=== PATIENT | female | born 2000 | race African-American/Black ===

== ENCOUNTER 2022-05-18 03:39 | Inpatient (IN) | payer OTHER ==
[~2022-05-18] VITALS: Ht 160 cm; Wt 80.3 kg
[2022-05-18] VITALS (34 sets, daily range): BP systolic 118–191; BP diastolic 55–108
[2022-05-18] MEDS ORDERED: HOME MED LIST COMPLETE! XX SCH ×2 (04:05→08:15)
[2022-05-18] MEDS ORDERED: PENICILLIN G POTASSIUM IV 5 MU in D5W MINI-BAG PLUS 100 ML IV STA (05:04)
[2022-05-18] MEDS ORDERED: TRANEXAMIC ACID INJection 1,000 MG in NS 100 ML IV PRN (05:05)
[2022-05-18] MEDS ORDERED: OXYTOCIN INJ 10 UNITS/ML VIAL (J2590) IV PRN (05:05)
[2022-05-18] MEDS ORDERED: METHYLERGONOVINE MALEATE 0.2 MG/ML VIAL (J2210) IM PRN (05:05)
[2022-05-18] MEDS ORDERED: OXYTOCIN DRIP 30 UNITS in IV 1 EA IV PRN ×4 (05:05)
[2022-05-18] MEDS ORDERED: LACTATED RINGER'S 1000 ML IV ONE (05:05)
[2022-05-18] MEDS: LR 1,000 ML IV SCH ×3 (05:36→17:02)
[2022-05-18 07:16] LABS: HEMATOCRIT 35.7 % (36.0-47.0); HEMOGLOBIN 11.4 g/dl (12.0-15.5); MEAN CORPUSCULAR HEMOGLOBIN 26.6 pg (27.0-33.0); MEAN CORPUSCULAR HGB CONC 31.9 g/dl (32.0-36.5); MEAN CORPUSCULAR VOLUME 83.4 fl (80.0-96.0); PLATELET COUNT, AUTOMATED 288 10^3/uL (150-450); RED BLOOD COUNT 4.28 10^6/uL (4.00-5.40)
[2022-05-18] MEDS ORDERED: PRENTAB9 PO (08:13)
[2022-05-18] MEDS ORDERED: miSOPROStol 50MCG 1/2 TABLET PO PRN (09:25)
[2022-05-18] MEDS: PENICILLIN G POTASSIUM IV 2.5 MU in IV 1 EA IV SCH ×3 (09:48→18:22)
[2022-05-18] MEDS ORDERED: BETAMETHASONE SOLUSPAN 6MG/ML 5ML VIAL (J0702 PER 3MG) IM SCH (10:00)
[2022-05-18] MEDS ORDERED: LR 500 ML IV PRN (14:45)
[2022-05-18] MEDS ORDERED: ePHEDrine SULFATE 25 MG/5 ML(5MG/ML) SYRINGE IVP PRN (14:45)
[2022-05-18] MEDS ORDERED: EPIDURAL/PCA KEYS XX PRN (14:45)
[2022-05-18] MEDS ORDERED: FENTANYL/ROPIVACAINE/NACL BAG 100 ML EPIDURAL SCH (14:45)
[2022-05-18] MEDS ORDERED: NALOXONE INJ 0.4MG/1ML VIAL (J2310 PER 1MG) IV PRN (14:45)
[2022-05-18] MEDS ORDERED: ONDANSETRON 4MG 2ML VIAL IV PRN (14:45)
[2022-05-18] MEDS ORDERED: diphenhydrAMINE 50MG/ML VIAL (J1200) IV PRN (14:45)
[2022-05-18] MEDS ORDERED: FENTANYL 2MCG/ML ROPIVACAINE 0.2% IN 0.9% NACL 100ML IVBAG As Ordered ONE (14:48)
[2022-05-18 17:25] LABS: CREATININE,RANDOM URINE 24.9 MG/DL; TOTAL PROTEIN,RANDOM URINE 18.8 MG/DL (0.0-12.0)
[2022-05-18 17:36] LABS: ALT/SGPT 16 U/L (12-78); BILIRUBIN,TOTAL 0.2 MG/DL (0.2-1.0); CREATININE FOR GFR 0.62 MG/DL (0.55-1.30); LDH LACTATE DEHYDROGENASE 169 U/L (84-246); URIC ACID 4.8 MG/DL (2.6-6.0)
[2022-05-18] MEDS ORDERED: ACETAMINOPHEN 500 MG TAB PO PRN (22:35)
[2022-05-18] MEDS ORDERED: RHOGAM 300 MCG (1500 IU) INJ (J2790) IM SCH (22:35)
[2022-05-18] MEDS ORDERED: DOCUSATE SODIUM 100MG CAPSULE PO PRN (22:35)
[2022-05-18] MEDS ORDERED: DIBUCAINE 1% OINTMENT 30GM TOP PRN (22:35)
[2022-05-18] MEDS ORDERED: IBUPROFEN 800 MG TAB PO PRN (22:35)
[2022-05-18] MEDS ORDERED: MOM 30ML SUSPENSION UDC PO PRN (22:35)
[2022-05-19 00:25] VITALS: BP 130/73
[2022-05-19 06:00] VITALS: BP 129/76
[2022-05-19] MEDS: PRENATAL VITAMINS CHEWABLE TABLET PO SCH (09:21)
[2022-05-19 17:51] VITALS: BP 115/65
[2022-05-20] MEDS ORDERED: IBUP80TA PO (02:35)
[2022-05-20] MEDS ORDERED: COLA100C5 PO (02:35)
[2022-05-20] MEDS ORDERED: ACET-683 PO (02:35)
[2022-05-20 06:00] VITALS: BP 129/69
[2022-05-20] MEDS ORDERED: MEASLES,MUMPS,RUBELLA VACCINE INJ (MMR-II) (90707) SC.IMMUN ONE (09:00)
[2022-05-20] MEDS: PRENATAL VITAMINS CHEWABLE TABLET PO SCH (09:41)
== END 2022-05-20 14:15 | disposition home or self-care (01) | DRG 807 ==
LOC: M LDO 03:39 → M LDI 04:41 → M OBS 05-19 00:27
PROVIDERS: ADMIT Obstetrics & Gynecology; ATTEND Obstetrics & Gynecology
PROC: 10E0XZZ Delivery of Products of Conception, External Approach (ICD-10-PCS; principal; 2022-05-18)
PROC: 3E0P7GC Introduction of Other Therapeutic Substance into Female Reproductive, Via Natural or Artificial Opening (ICD-10-PCS; 2022-05-18)
PROC: 0HQ9XZZ Repair Perineum Skin, External Approach (ICD-10-PCS; 2022-05-18)
DX: O42.013 Preterm premature rupture of membranes, onset of labor within 24 hours of rupture, third trimester (principal); Z37.0 Single live birth; Z3A.36 36 weeks gestation of pregnancy; O70.0 First degree perineal laceration during delivery